=== PATIENT | female | born 1985 | race Two or more races ===

== ENCOUNTER 2016-11-08 14:44 | Inpatient (IN) | payer BC ==
[2016-11-08] VITALS (38 sets, daily range): BP systolic 114–134; BP diastolic 72–91; PULSE 71–116; RESP 18; TEMP 97.6–98
[~2016-11-08 14:44] MED LIST: IBUP600 PO; PERI8.6T PO; PREN0.01 PO
[2016-11-08] MEDS ORDERED: LACTATED RINGER'S 1000 ML INJ 1,000 ML IV PRN (15:38)
[2016-11-08] MEDS ORDERED: MINERAL OIL 10 ML VIAL TOPICAL PRN (15:45)
[2016-11-08] MEDS ORDERED: LIDOCAINE HCL 1% 50 ML VIAL I-DERMAL PRN (15:45)
[2016-11-08] MEDS ORDERED: SODIUM CHLORID 0.9% 500 ML INJ 500 ML IV PRN (15:45)
[2016-11-08] MEDS ORDERED: OXYTOCIN 30 UNITS-500ML PREMIX 500 ML IV SCH (15:45)
[2016-11-08] MEDS ORDERED: OXYTOCIN 30 UNITS-500ML PREMIX 500 ML IV ONE (15:45)
[2016-11-08] MEDS ORDERED: LIDOCAINE HCL 1% 50 ML VIAL INFIL PRN (15:45)
[2016-11-08] MEDS ORDERED: CITRIC ACID-SODIUM CITRATE LIQ 30 ML UDC PO SCH (15:45)
[2016-11-08] MEDS ORDERED: SODIUM CHLOR 0.9% 1000 ML INJ 1,000 ML IV PRN (15:58)
[2016-11-08] MEDS ORDERED: LACTATED RINGER'S 1000 ML INJ 1,000 ML IV SCH (16:00)
[2016-11-08 16:43] LABS: AUTOMATED NEUTROPHIL # 6.3 TH/MM3 (1.8-7.7); BASOPHIL # 0.1 TH/MM3 (0-0.2); BASOPHIL % 0.6 % (0.0-2.0); EOSINOPHIL % 0.3 % (0.0-4.0); LYMPH % 26.4 % (9.0-44.0); LYMPHOCYTE # 2.5 TH/MM3 (1.0-4.8); MEAN CELL VOLUME 73.3 FL (80.0-100.0); MEAN CORPUSCULAR HEMOGLOBIN 24.4 PG (27.0-34.0); MEAN CORPUSCULAR HGB CONC 33.2 % (32.0-36.0); MONO % 6.6 % (0.0-8.0); NEUT % 66.1 % (16.0-70.0); PLATELET COUNT 211 TH/MM3 (150-450); RED BLOOD COUNT 4.92 MIL/MM3 (4.00-5.30); RED CELL DISTRIBUTION WIDTH 14.5 % (11.6-17.2); WHITE BLOOD COUNT 9.5 TH/MM3 (4.0-11.0)
[2016-11-08 16:48] LABS: HEMO FLAGS AUTO DIFF
[2016-11-08 17:06] LABS: BACTERIA, URINE RARE /hpf; BLOOD, URINE NEG (NEG); GLUCOSE,URINE NEG (NEG); KETONE, URINE NEG (NEG); MUCUS URINE FEW /lpf (OCC); NITRITE,URINE NEG (NEG); PH, URINE 5.5 (5.0-8.5); SQUAMOUS EPITHELIAL CELL URINE 9 /hpf (0-5); URINE COLOR YELLOW (YELLW/STRAW)
[2016-11-08 17:08] LABS: COMMENT (UR) CULT NOT INDICATED; CULTURE IF INDICATED CULT NOT INDICATED
[2016-11-08 17:19] LABS: PLATELET ESTIMATE SMEAR NORMAL (NORMAL); PLATELET MORPHOLOGY NORMAL (NORMAL); SCAN/DIFF AUTO DIFF CONFIRMED
[2016-11-08] MEDS ORDERED: fentaNYL 2MCG-BUPIV 0.125% INJ 100 ML ONE (18:13)
[2016-11-08] MEDS ORDERED: CITRIC ACID-SODIUM CITRATE LIQ 30 ML UDC PO ONE (18:30)
[2016-11-08] MEDS ORDERED: ePHEDrine/NS 25 MG/5 ML SYR ONE (18:34)
[2016-11-08] MEDS ORDERED: CALCIUM CARBONATE 500 MG CHEWABLE TAB CHEW PRN (21:15)
--- NOTE | 2016-11-08 22:52 | PD.OB.DELI ---
Anesthesia: Epidural Episiotomy: None Vaginal Delivery: Normal Presentation: Occiput anterior Nuchal Cord: None Shoulder Dystocia: Suprapubic pressure given : Male One Minute : 9 Five Minute : 9 Weight: 9-9 Care: Suctioned Placenta: Spontaneous delivery Laceration: No lacerations Virgen Arana MD Nov 08, 2016 22:52
[2016-11-08] MEDS ORDERED: medroxyPROGESTERone ACETATE SUSP 150 MG/ML SYRINGE IM ONE (23:00)
[2016-11-09] MEDS ORDERED: fentaNYL 2MCG-BUPIV 0.125% 100 ML EPIDURAL SCH
[2016-11-09] MEDS ORDERED: DO NOT ADMINISTER ANTICOAGULANTS XX PRN
[2016-11-09] MEDS ORDERED: NO SYSTEM NARCOTICS XX PRN
[2016-11-09] MEDS ORDERED: ONDANSETRON ODT 4 MG TAB PO PRN (02:00)
[2016-11-09] MEDS ORDERED: WITCH HAZEL 50%/GLYCERIN 12.5% 40 PAD JAR TOP PRN (02:00)
[2016-11-09] MEDS ORDERED: ZOLPIDEM TARTRATE 5 MG TAB PO PRN (02:00)
[2016-11-09] MEDS ORDERED: BENZOCAINE 20% TOPICAL SPRAY 60 ML CAN TOP PRN (02:00)
[2016-11-09] MEDS ORDERED: ALUMINUM/MAGNESIUM/SIMETH 30 ML CUP PO PRN (02:00)
[2016-11-09] MEDS: DOCUSATE SODIUM 50 MG/SENNA 8.6 MG TAB PO PRN ×2 (05:06→17:10)
[2016-11-09] MEDS: IBUPROFEN 600 MG TAB PO PRN ×3 (05:06→20:01)
[2016-11-09 08:00] VITALS: BP 134/96; PULSE 68; RESP 18; TEMP 97.9
[2016-11-09] MEDS: ACETAMINOPHEN 325 MG TAB PO PRN ×4 (08:26→23:59)
--- NOTE | 2016-11-09 10:00 | HHI.OB ---
Subjective Post Day: 1 Remarks comfortable post evening delivery large baby with no tear desires circumcision plans to bottle no questions Objective Vitals/I&O Vital Signs Date Time Temp Pulse Resp B/P Pulse Ox O2 Delivery O2 Flow Rate FiO2 11/08/16 21:52 18 11/08/16 21:50 86 11/08/16 21:45 93 11/08/16 21:45 92 128/89 11/08/16 21:42 18 11/08/16 21:40 112 11/08/16 21:35 91 11/08/16 21:30 116 11/08/16 21:30 102 117/83 11/08/16 21:27 18 11/08/16 21:25 99 11/08/16 21:20 82 11/08/16 21:15 84 11/08/16 21:15 77 114/77 11/08/16 21:08 18 11/08/16 21:05 80 11/08/16 21:00 97 134/83 11/08/16 21:00 18 11/08/16 21:00 76 11/08/16 20:55 71 11/08/16 20:50 101 11/08/16 20:45 83 11/08/16 20:45 74 114/74 11/08/16 20:33 18 11/08/16 20:30 90 118/77 11/08/16 20:30 78 11/08/16 20:23 18 11/08/16 20:20 74 11/08/16 20:15 75 119/83 11/08/16 20:15 80 11/08/16 19:50 98.0 11/08/16 19:48 18 11/08/16 19:45 78 126/89 11/08/16 19:45 84 11/08/16 19:45 75 11/08/16 19:36 85 11/08/16 19:36 121/72 11/08/16 19:35 73 11/08/16 19:35 75 11/08/16 19:34 18 11/08/16 19:30 85 11/08/16 19:30 79 11/08/16 19:30 86 125/85 11/08/16 19:01 18 11/08/16 18:31 18 11/08/16 16:10 82 11/08/16 16:10 18 11/08/16 16:10 79 123/91 11/08/16 16:09 97.6 11/08/16 16:05 82 11/08/16 16:00 82 11/08/16 15:55 85 11/08/16 15:50 80 11/08/16 15:45 87 11/08/16 15:28 93 130/86 11/08/16 15:25 90 Objective Remarks GENERAL: Well-nourished, well-developed patient. CARDIOVASCULAR: Regular rate and rhythm without murmurs, gallops, or rubs. RESPIRATORY: Breath sounds equal bilaterally. No accessory muscle use. ABDOMEN/GI: Abdomen soft, non-tender. Fundus: Firm, non-tender at umbilicus. GENITOURINARY: Light to moderate bleeding. EXTREMITIES: No cyanosis or edema, non-tender, without signs of DVT. Medications and IVs Current Medications Medications (Trade) Dose Ordered Sig/Imelda Route Start Time Stop Time Status Last Admin Miscellaneous Information No systemic narcotics to be given except... UNSCH PRN XX 11/09/16 00:00 11/10/16 00:00 Miscellaneous Information DO NOT ADMINISTER ANY ANTICOAGUL... UNSCH PRN XX 11/09/16 00:00 11/10/16 00:00 (fentaNYL 2MCG-BUPIV 0.125% INJ) 100 ml @ 0 mls/hr TITRATE EPIDURAL 11/09/16 00:00 11/08/16 18:31 (ePHEDrine/NS 25 MG/5 ML SYR) 10 mg UNSCH PRN IV 11/09/16 23:45 11/10/16 23:44 (Tylenol) 650 mg Q4H PRN PO 11/09/16 02:00 11/09/16 08:26 (Motrin) 600 mg Q6H PRN PO 11/09/16 02:00 11/09/16 05:06 (Americaine 20% Top Spr) 1 spray Q4H PRN TOP 11/09/16 02:00 11/09/16 05:05 (Tucks Pads) 1 applic Q6H PRN TOP 11/09/16 02:00 11/09/16 05:05 (Barbara-Colace) 2 tab Q12H PRN PO 11/09/16 02:00 11/09/16 05:06 (Ambien) 5 mg HS PRN PO 11/09/16 02:00 (M-M-R Ii Inj) 0.5 ml ONCE ONCE SQ 11/09/16 16:00 11/09/16 16:01 (Boostrix Inj) 0.5 ml ONCE ONCE IM 11/09/16 16:00 11/09/16 16:01 (Mag-Al Plus Susp Liq) 15 ml Q8H PRN PO 11/09/16 02:00 11/09/16 05:14 (Zofran Odt) 4 mg Q6H PRN PO 11/09/16 02:00 Assessment/Plan Assessment and Plan unremarkable PPD1 anticipate in am PPD2 Luna Canales MD Nov 09, 2016 10:00
--- NOTE | 2016-11-09 10:36 | MH ---
cc: SHARONA FELICIANO MD DATE OF ADMISSION: 11/08/2016 HISTORY OF PRESENT ILLNESS She is 12-rrrxi-til, 2, para 1-0-0-1. Intrauterine at 39 weeks. Complaining of pelvic pain, prodromal labor. care has been with [facility] uncomplicated. Group-B strep was negative. One-hour GCT was normal. PAST OB HISTORY She delivered a full-term vaginal, 7 pounds 6 ounces, in 2014. PAST [facility] HISTORY She had a colposcopy in 2003. Last Pap smear in March 2016 was normal. PAST MEDICAL HISTORY She denies hypertension, diabetes or asthma. PAST SURGICAL HISTORY She denies. MEDICATIONS She takes vitamins. ALLERGIES She is allergic to ERYTHROMYCIN. PHYSICAL EXAMINATION VITAL SIGNS: Blood pressure is 130/76. She is 180 pounds. HEAD, HEART, CHEST AND LUNGS: Within normal limits. ABDOMEN: Soft, nontender, gravid. PELVIC: Her cervix is 2-3 cm dilated, 50% effaced, -2 station, vertex presentation. ASSESSMENT AND PLAN She is 81-otluc-gpm, 2, para 1. Intrauterine at 39 weeks with prolonged prodromal labor. Group-B strep is negative. The risks, benefits and alternatives of Pitocin augmentation have been explained to the patient. All of her questions have been answered. MD GREG Rausch/SURESH /2:30 PM /10:33 AM
[2016-11-09] MEDS ORDERED: medroxyPROGESTERone ACETATE SUSP 150 MG/ML SYRINGE IM ONE (10:45)
[2016-11-09] MEDS ORDERED: DIPHTH/TETANUS/ACEL PERTUSSIS (BOOSTER) 0.5 ML VIAL/PFS IM ONE (16:00)
[2016-11-09] MEDS ORDERED: MEASLES, MUMPS, RUBELLA VACCINE 0.5 ML VIAL SQ ONE (16:00)
[2016-11-09] MEDS ORDERED: ePHEDrine/NS 25 MG/5 ML SYR IV PRN (23:45)
[2016-11-10] MEDS: DOCUSATE SODIUM 50 MG/SENNA 8.6 MG TAB PO PRN (04:52)
[2016-11-10] MEDS: ACETAMINOPHEN 325 MG TAB PO PRN (04:52)
[2016-11-10] MEDS: IBUPROFEN 600 MG TAB PO PRN (04:52)
--- NOTE | 2016-11-10 07:42 | HHI.DCPOC ---
Discharge Care Plan Diagnosis: (1) (normal spontaneous vaginal delivery) Your Health Problems Are: Vaginal delivery Report Symptoms to Your Doctor -Temperate above 100.5 degrees -Redness, of incision or excessive or foul smelling drainage -Unusual pain or calf pain -Increased vaginal bleeding -Painful or difficulty urinating -Feelings of extreme sadness or anxiety after 2 weeks Goals to Promote Your Health * To prevent worsening of your condition and complications * To maintain your health at the optimal level Directions to Meet Your Goals Take your medications as prescribed Follow your dietary instruction Follow activity as directed Ensure plenty of rest for recovery Drink fluids for hydration Keep your appointments as scheduled Take your immunizations and boosters as scheduled If your symptoms worsen call your PCP, if no PCP go to Urgent Care Center or Emergency Room Smoking is Dangerous to Your Health. Avoid second hand smoke Call the 24-hour crisis hotline for domestic abuse at Ivania Renner MD Nov 10, 2016 07:42
[2016-11-10] MEDS ORDERED: SENN1TAB PO (08:32)
[2016-11-10] MEDS ORDERED: IBUP-232 PO (08:32)
--- NOTE | 2016-11-10 08:33 | HHI.OB ---
Subjective Post Day: 2 Remarks s/p Objective Objective Remarks GENERAL: Well-nourished, well-developed patient. CARDIOVASCULAR: Regular rate and rhythm without murmurs, gallops, or rubs. RESPIRATORY: Breath sounds equal bilaterally. No accessory muscle use. ABDOMEN/GI: Abdomen soft, non-tender. Fundus: Firm, non-tender at umbilicus. GENITOURINARY: Light bleeding. EXTREMITIES: No cyanosis or edema, non-tender, without signs of DVT. Medications and IVs Current Medications Medications (Trade) Dose Ordered Sig/Imelda Route Start Time Stop Time Status Last Admin (fentaNYL 2MCG-BUPIV 0.125% INJ) 100 ml @ 0 mls/hr TITRATE EPIDURAL 11/09/16 00:00 11/08/16 18:31 (ePHEDrine/NS 25 MG/5 ML SYR) 10 mg UNSCH PRN IV 11/09/16 23:45 11/10/16 23:44 (Tylenol) 650 mg Q4H PRN PO 11/09/16 02:00 11/10/16 04:52 (Motrin) 600 mg Q6H PRN PO 11/09/16 02:00 11/10/16 04:52 (Americaine 20% Top Spr) 1 spray Q4H PRN TOP 11/09/16 02:00 11/09/16 05:05 (Tucks Pads) 1 applic Q6H PRN TOP 11/09/16 02:00 11/09/16 05:05 (Barbara-Colace) 2 tab Q12H PRN PO 11/09/16 02:00 11/10/16 04:52 (Ambien) 5 mg HS PRN PO 11/09/16 02:00 (Mag-Al Plus Susp Liq) 15 ml Q8H PRN PO 11/09/16 02:00 11/09/16 05:14 (Zofran Odt) 4 mg Q6H PRN PO 11/09/16 02:00 Assessment/Plan Assessment and Plan PPD#2 uncomplicated routine pp care meeting all d/c criteria d/c to home today Discharge Planning routine Ivania Renner MD Nov 10, 2016 08:33
== END 2016-11-10 10:43 | disposition home or self-care (01) | DRG 775 ==
LOC: H2EB 14:44 → H1EA 11-09 01:43
PROVIDERS: ADMIT Obstetrics & Gynecology; ATTEND Obstetrics & Gynecology
PROC: 10E0XZZ Delivery of Products of Conception, External Approach (ICD-10-PCS; principal; 2016-11-08)
DX: O66.0 Obstructed labor due to shoulder dystocia (principal); Z37.0 Single live birth; Z3A.39 39 weeks gestation of pregnancy
CPT/HCPCS: 59025; 81001; 85025; 86900; 86901; J1050; J2590; J7120